=== PATIENT | female | born 1995 | race Caucasian/White ===

== ENCOUNTER 2021-05-11 13:08 | Emergency (ER) | payer OTHER ==
[2021-05-11] MEDS ORDERED: IBUPROFEN600 MG PO (16:22)
== END 2021-05-11 16:52 | disposition home or self-care (01) ==
LOC: ER1 13:08
DX: M62.830 Muscle spasm of back (principal); Z88.0 Allergy status to penicillin; Z88.7 Allergy status to serum and vaccine; X50.9XXA Other and unspecified overexertion or strenuous movements or postures, initial encounter
CPT/HCPCS: 72100; 81001; 84703; 96372; 99283; J1885; J2360

== ENCOUNTER 2021-06-19 22:24 | Emergency (ER) | payer OTHER ==
[~2021-06-19 22:24] MED LIST: IBUPROFEN600 MG PO
[2021-06-20] MEDS ORDERED: ZITHROMAX250 MG PO (01:36)
[2021-06-20] MEDS ORDERED: PROAIR HFA8.5 GM INH (01:36)
== END 2021-06-20 02:11 | disposition home or self-care (01) ==
LOC: ER1 22:24
DX: H66.91 Otitis media, unspecified, right ear (principal); J06.9 Acute upper respiratory infection, unspecified; J45.909 Unspecified asthma, uncomplicated; Z20.822 Contact with and (suspected) exposure to COVID-19
CPT/HCPCS: 0240U; 87081; 87880; 99283

== ENCOUNTER 2021-11-03 02:27 | Observation (INO) | payer OTHER ==
[~2021-11-03] VITALS: Ht 165.1 cm; Wt 113.4 kg
[~2021-11-03 02:27] MED LIST changes: +PROAIR HFA8.5 GM INH; +ZITHROMAX250 MG PO
[2021-11-03 03:07] LABS: HEMOGLOBIN 12.5 gm/dl (12.3-15.3); RED BLOOD COUNT 4.37 M/UL (4.00-5.10); WHITE BLOOD COUNT 10.4 K/UL (4.5-11.0)
[2021-11-03 03:24] LABS: BUN/CREATININE RATIO 21 (0-10)
[2021-11-03] MEDS ORDERED: FLONASE ALLER15.8 ML (11:42)
[2021-11-03] MEDS ORDERED: SYNTHROID25 MCG PO (11:42)
[2021-11-03] MEDS ORDERED: NEOMYC-POLYM-DEX5 ML EARBOTH (11:43)
[2021-11-03] MEDS ORDERED: PRENATAL 19 CH1 EAC1 PO (11:46)
== END 2021-11-04 04:20 | disposition home or self-care (01) ==
LOC: ER1 02:27 → MED SURG 4 04:52 → CDU 04:52 → MED SURG 4 04:52
PROVIDERS: Student in an Organized Health Care Education/Training Program; ADMIT Obstetrics & Gynecology
DX: O9A.211 Injury, poisoning and certain other consequences of external causes complicating pregnancy, first trimester (principal); T39.1X1A Poisoning by 4-Aminophenol derivatives, accidental (unintentional), initial encounter; Z3A.01 Less than 8 weeks gestation of pregnancy; Z88.0 Allergy status to penicillin; Z88.7 Allergy status to serum and vaccine; Z79.899 Other long term (current) drug therapy
CPT/HCPCS: 80053; 80307; 85025; 93005; 96365; 96366; 99285; G0378; J0132; J2405; J7060; J7070

== ENCOUNTER 2021-12-27 01:25 | Emergency (ER) | payer OTHER ==
[~2021-12-27 01:25] MED LIST changes: +FLONASE ALLER15.8 ML; +NEOMYC-POLYM-DEX5 ML EARBOTH; +PRENATAL 19 CH1 EAC1 PO; +SYNTHROID25 MCG PO
== END 2021-12-27 04:28 | disposition home or self-care (01) ==
LOC: ER1 01:25
DX: O26.851 Spotting complicating pregnancy, first trimester (principal); Z3A.13 13 weeks gestation of pregnancy; Z88.0 Allergy status to penicillin; W01.0XXA Fall on same level from slipping, tripping and stumbling without subsequent striking against object, initial encounter
CPT/HCPCS: 81001; 99284